=== PATIENT | female | born 1940 | race Caucasian/White ===

== ENCOUNTER 2021-06-22 14:01 | Emergency (ER) | payer OTHER, MEDICARE ==
[2021-06-22 14:44] LABS: BASOPHIL 0.3 % (0-2); EOSINOPHIL 0.1 % (0-7); HCT 38.6 % (37.0-47.0); HGB 12.2 g/dl (12.5-16.0); MCH 28.5 pg (25.0-31.0); MCHC 31.6 g/dL (32.0-36.0); MCV 90.2 fL (78.0-100.0); MONOCYTE 8.8 % (0-12); NEUTROPHIL 81.2 % (41-80); NRBC 0; PLT 254 K/uL (150-400); RBC 4.28 M/uL (4.20-5.40); RDW 13.4 % (11.5-14.0)
[2021-06-22 15:14] LABS: ALBUMIN 3.4 g/dL (3.4-5.0); BILIRUBIN - TOTAL 0.3 mg/dL (0.2-1.0); BUN/CREAT RATIO (CALC) 23.2 RATIO; CREATININE 0.82 mg/dL (0.51-0.95); GLOBULIN (CALCULATION) 3.9 g/dL; POTASSIUM 4.1 mmol/L (3.5-5.1); TOTAL PROTEIN 7.3 g/dL (6.4-8.2)
== END 2021-06-22 16:38 | disposition home or self-care (01) ==
LOC: FER 14:01
PROVIDERS: Emergency Medicine
DX: R73.9 Hyperglycemia, unspecified (principal); F03.90 Unspecified dementia, unspecified severity, without behavioral disturbance, psychotic disturbance, mood disturbance, and anxiety; I10 Essential (primary) hypertension; Z88.0 Allergy status to penicillin; Z88.2 Allergy status to sulfonamides
CPT/HCPCS: 36415; 71045; 80053; 84484; 85025; 93005